=== PATIENT | female | born 1960 | race Two or more races ===

== ENCOUNTER → 2018-09-15 | Outpatient (CLI) | payer OTHER ==
[~2018-09-15] VITALS: Ht 165.1 cm; Wt 77.1 kg
[~2018-09-15] MED LIST: IOHEXOL 350 MG/ML 100ML IJ ONE; cloNIDine HCL 0.1 MG TAB ONE; cloNIDine HCL 0.1 MG TAB PO ONE
[2018-09-15 09:30] VITALS: BP 198/96
[2018-09-15 10:00] VITALS: BP 156/91
== END | disposition home or self-care (01) ==
LOC: Rad HDHVI 08:10
PROVIDERS: ATTEND Internal Medicine Cardiovascular Disease
DX: I34.0 Nonrheumatic mitral (valve) insufficiency (principal); I25.119 Atherosclerotic heart disease of native coronary artery with unspecified angina pectoris; I77.1 Stricture of artery; I71.6 Thoracoabdominal aortic aneurysm, without rupture; I70.1 Atherosclerosis of renal artery; I10 Essential (primary) hypertension; I51.7 Cardiomegaly
CPT/HCPCS: 71275; 78452; 82565; 93017; 93306; 96374; A9500; G0463; Q9967